=== PATIENT | female | born 2000 | race Caucasian/White ===

== ENCOUNTER 2020-11-09 01:13 | Emergency (ER) | payer MEDICAID ==
[~2020-11-09] VITALS: Ht 149.9 cm; Wt 76.2 kg
[2020-11-09 02:00] VITALS: BP_SYST 147
--- NOTE | 2020-11-09 02:03 | NUR ---
Pt c/o bilateral flank pain radiating to rt side of the abdomen since 1800 hr. Pt denied N/V/D. Took Tramadol 50 mg at 0030 hrs with some relief. Pt respiratory even unlabored. Abdomen soft, non tender, with normal bowel sounds on all quadrants. Pt afebrile, no other symptoms noted. Pt ambulatory with steady gait.
--- NOTE | 2020-11-09 02:03 | NUR ---
Patient triaged and placed in waiting room. VSS and patient appears in no acute distress at this time. Awaiting available bed, and MD notified of need for MSE.
--- NOTE | 2020-11-09 02:10 | NUR ---
ER at bedside examining patient.
[2020-11-09 02:27] LABS: HCG,QUAL RESULT NEGATIVE (NEGATIVE)
[2020-11-09 03:48] LABS: BASOPHILS # (AUTO) 0.1 K/uL (0.0-0.2); BASOPHILS % (AUTO) 0.6 % (0.0-2.0); EOSINOPHILS % (AUTO) 0.5 % (0.0-4.0); HEMATOCRIT 40.4 % (36-48); HEMOGLOBIN 13.6 g/dL (12.0-16.0); LYMPHOCYTES # (AUTO) 1.8 K/uL (1.0-5.5); LYMPHOCYTES % (AUTO) 20.7 % (20.5-51.5); MEAN CORPUSCULAR HEMOGLOBIN 30 pg (27-31); MEAN CORPUSCULAR HGB CONC 34 % (32-36); MEAN CORPUSCULAR VOLUME 87 fL (79.0-98.0); MONOCYTES # (AUTO) 0.7 K/uL (0.0-1.0); MONOCYTES % (AUTO) 8.5 % (1.7-9.3); NEUTROPHILS # (AUTO) 6.1 K/uL (1.8-7.7); NEUTROPHILS % (AUTO) 69.7 % (40.0-70.0); PLATELET COUNT (AUTO) 263 K/uL (130-430); RED BLOOD CELL COUNT(AUTO) 4.62 MIL/uL (4.2-6.2); RED CELL DISTRIBUTION WIDTH 12.8 % (9.0-15.0); WHITE BLOOD COUNT (AUTO) 8.7 K/uL (4.5-11.0)
[2020-11-09 03:52] LABS: CALCIUM 8.6 mg/dL (8.4-11.0); CREATININE 0.75 mg/dL (0.55-1.30); POTASSIUM 3.9 mmol/L (3.5-5.1)
[2020-11-09 03:58] LABS: ALBUMIN 3.6 g/dL (3.4-4.8); TOTAL BILIRUBIN 0.5 mg/dL (0.0-1.0)
[2020-11-09 05:46] VITALS: BP_SYST 130
--- NOTE | 2020-11-09 05:46 | NUR ---
Patient given written and verbal discharge instructions and verbalizes understanding. ER MD discussed with patient the results and treatment provided. Patient in stable condition. ID arm band removed. Rx of Ibuprofen 600 mg given. Patient educated on pain management and to follow up with PMD. Pain Scale 0/10. Opportunity for questions provided and answered.
== END 2020-11-09 05:46 | disposition home or self-care (01) ==
LOC: SED 01:13
DX: I88.0 Nonspecific mesenteric lymphadenitis (principal)
CPT/HCPCS: 36415; 76376; 80053; 81025; 84703; 85025; 99284